=== PATIENT | male | born 1980 | race Caucasian/White ===

== ENCOUNTER 2017-02-24 09:51 | Emergency (ER) | payer BC ==
[~2017-02-24] VITALS: Ht 180.3 cm; Wt 94.4 kg
[2017-02-24 09:52] VITALS: BP 140/79
[2017-02-24] MEDS ORDERED: METHYLPREDNISOLONE SOD SUCC 40 MG/ML VIAL IM ONE (10:30)
== END 2017-02-24 11:09 | disposition home or self-care (01) ==
LOC: ER 10:00
DX: T78.40XA Allergy, unspecified, initial encounter (principal); Z91.048 Other nonmedicinal substance allergy status; X58.XXXA Exposure to other specified factors, initial encounter
CPT/HCPCS: 99282; J2920

== ENCOUNTER 2023-07-10 19:13 | Emergency (ER) | payer SELFPAY ==
[2023-07-10] MEDS ORDERED: CEPH500C2 MT (22:12)
[2023-07-10] MEDS ORDERED: NAPR-681 PO (22:12)
[2023-07-10] MEDS ORDERED: CETI10TA6 MT (22:12)
[2023-07-10] MEDS ORDERED: SULF1TAB48 MT (22:12)
[2023-07-10 22:24] VITALS: BP 150/86; PULSE 99; RESP 16; TEMP 98.9
== END 2023-07-10 22:33 | disposition home or self-care (01) ==
LOC: ER 19:13
DX: L03.221 Cellulitis of neck (principal); E11.9 Type 2 diabetes mellitus without complications; Z91.048 Other nonmedicinal substance allergy status; Z79.899 Other long term (current) drug therapy
CPT/HCPCS: 99283